=== PATIENT | female | born 1970 | race Caucasian/White ===

== ENCOUNTER 2018-07-07 20:05 | Emergency (ER) | payer OTHER ==
[~2018-07-07] VITALS: Ht 162.6 cm; Wt 97.9 kg
[2018-07-07 20:08] VITALS: Ht 162.6 cm; Wt 97.9 kg
[2018-07-07] MEDS ORDERED: KETOROLAC 15 MG INJ IM STA (22:43)
--- NOTE | 2018-07-07 22:43 | ERD ---
ER Documentation Chief Complaint Chief Complaint pt reports lump in breast 18 months, nipple having bloody drainage HPI This is a 47-year-old female with a known past medical history of a benign cystic right breast mass, diagnosed approximately 18 months ago, for which she has had a full work-up including CT scan, mammogram, ultrasound and biopsy, is presenting with continued right breast pain associated with bloody purulent discharge today. The discharge is what prompted her to come to the emergency department. The family reports occasional fever and chills over the last several months. The patient is afebrile today. She has no other complaints. She does not endorse any alleviating or exacerbating factors. The patient has had no headache or vision changes. The patient does not endorse neck or back pain. The patient denies lightheadedness or dizziness. The patient has had no chest pain or trouble breathing. The patient denies nausea or vomiting. The patient denies abdominal pain. The patient denies changes to bowel movements or urination. The patient has had no focal deficits. The patient has had no weakness or numbness or tingling to the face or extremities. ROS All systems reviewed and are negative except as per history of present illness. Allergies Allergies: Coded Allergies: No Known Allergy (Unverified , 07/07/18) PMhx/Soc Medical and Surgical Hx: pt denies Surgical Hx History of Surgery: Yes () Anesthesia Reaction: No Hx Neurological Disorder: No Hx Respiratory Disorders: No Hx Cardiac Disorders: No Hx Psychiatric Problems: No Hx Miscellaneous Medical Probl: Yes (Right breast cyst) Hx Alcohol Use: No Hx Substance Use: No Hx Tobacco Use: No FmHx Family History: No diabetes Physical Exam Vitals Vital Signs Date Temp Pulse Resp B/P (MAP) Pulse Ox O2 O2 Flow FiO2 Time Delivery Rate 07/07/18 97.9 103 20 152/72 99 20:08 (98) Physical Exam Const: No acute distress Head: Atraumatic Eyes: Normal Conjunctiva ENT: Normal External Ears, Nose and Mouth. Neck: Full range of motion. No meningismus. Resp: Clear to auscultation bilaterally Cardio: Regular rate and rhythm, no murmurs Breast: Hospital Manager present at all times. Right mobile tender rubbery breast mass superior to the areola without any active discharge, no erythema or induration to the skin. Abd: Soft, non tender, non distended. Normal bowel sounds Skin: No petechiae or rashes Back: No midline or flank tenderness Ext: No cyanosis, or edema Neur: Awake and alert Psych: Normal Mood and Affect Procedures/MDM MDM Previous medical records, if available, were reviewed. The patient symptoms are potentially concerning for mastitis. I do not see any evidence of cellulitis. I have decreased suspicion for abscess. The patient's breast mass size and structure is unchanged and chronic according to the patient. The patient understands the need to follow-up with her physicians who have been following her for this problem. I do intend to treat with antibiotics. The patient is afebrile with unremarkable vital signs. I do not suspect a syst emic infection. The patient does not require a septic work-up. TREATMENT/DISPOSITION The patient was treated with Toradol. DISCHARGE Upon reevaluation of the patient, symptoms have improved. No emergent diagnoses were identified. At this time, I feel that the patient stable for discharge. The patient was instructed to follow-up with a primary care physician in 1-3 days. The patient will be given strict precautions with which to return to the emergency department. Prescriptions: Augmentin, ibuprofen The patient's blood pressure was elevated at greater than 120/80 while in the emergency department. The patient was otherwise stable with no evidence of hypertensive urgency or emergency. The patient does not require admission for blood pressure control. I have discussed with the patient the risks of hypertension. I have instructed the patient to return to the ER for any new or worsening symptoms including chest pain, shortness of breath, headache, blurred vision, confusion, nausea, vomiting or LOC. I have advised the patient to follow up with the primary care physician for outpatient monitoring and treatment for hypertension in 1-3 days. Disclaimer: Inadvertent spelling and grammatical errors are likely due to EHR/dictation software use and do not reflect on the overall quality of patient care. Note that the electronic time recorded on this note does not necessarily reflect the actual time of the patient encounter. Departure Diagnosis: Primary Impression: Mastitis Additional Impressions: Chronic breast pain Breast mass, right Condition: Stable Patient Instructions: Breast Mass, Uncertain Cause, Mastitis Additional Instructions: Thank you for for coming to [facility] for your care today. Please ask your nurse or provider if you have questions about your care today and do not leave until all your questions have been answered. Please use any medications given as directed and follow-up with your doctor (or the doctor you were referred to) in the next 1-3 days. If you do not have a primary care doctor you may follow up at the [facility] clinic (listed below). You may also use motrin and tylenol as needed for fever and/or pain unless instructed otherwise by your provider or nurse. Indications for more urgent follow-up have been discussed, but you may return to the Emergency Department at ANY time for any worrisome or worsening symptoms. If you have abdominal pain, please know that no test or exam you received is perfect and you should follow up within 8 hours for continued pain. If you had any imaging studies today, such as an X-Ray or CT Scan, these studies will be reviewed later by a radiologist. You will be called if there are important findings that were not identified today, so make sure the contact information you provided at registration is correct. If you received any narcotic pain control medicine today, such as Vicodin, Morphine or Dilaudid, your coordination and judgment may be affected for a number of hours. Please do not drive or operate heavy machinery, and you may want someone to assist you at home. If you were given a prescription for narcotic medication, be aware that it is very addictive- use sparingly and only if necessary. PLEASE SEEK FURTHER EVALUATION AND MANAGEMENT AT YOUR DOCTORS OFFICE WITHIN THE NEXT 1-3 DAYS. IT IS YOUR RESPONSIBILITY TO MAKE AN APPOINTMENT FOR FOLOW-UP CARE. IF YOU HAVE A PRIMARY DOCTOR, PLEASE CALL THEIR OFFICE TO SCHEDULE AN APPOINTMENT FOR FOLLOW UP. IF YOU DO NOT HAVE A PRIMARY DOCTOR YOU CAN CALL OUR PHYSICIAN REFERRAL HOTLINE AT IF YOU CAN NOT AFFORD TO SEE A PHYSICIAN YOU CAN CHOSE FROM THE FOLLOWING [facility] CLINICS: [facility] [address] [facility] [address] [facility] [facility] [address] [facility] [address] [facility] [address] [facility]. [facility]. [address] JUANITA SIFUENTES MD July 07, 2018 22:43
[2018-07-07] MEDS ORDERED: AMOX1TAB10 PO (22:44)
[2018-07-07] MEDS ORDERED: IBUP-1542 PO (22:44)
[2018-07-07 23:10] VITALS: BP 118/75; PULSE 62; RESP 20
== END 2018-07-07 23:25 | disposition home or self-care (01) ==
LOC: E/R 20:05
DX: N61.0 Mastitis without abscess (principal)
CPT/HCPCS: 96372; J1885; Z7502

== ENCOUNTER 2018-08-03 08:18 | Emergency (ER) | payer OTHER ==
[~2018-08-03] VITALS: Ht 165.1 cm; Wt 96.0 kg
[~2018-08-03 08:18] MED LIST: AMOX1TAB10 PO; IBUP-1542 PO
[2018-08-03 08:23] VITALS: BP 134/68; PULSE 76; RESP 18; Ht 165.1 cm; Wt 96.0 kg
[2018-08-03] MEDS ORDERED: BACI28.34 TOP (08:48)
--- NOTE | 2018-08-03 08:49 | ERD ---
ER Documentation Chief Complaint Chief Complaint PUNCTURE WOUND ON RT LEG FROM INJURY WITH NAIL @ WORK HPI 47-year-old female presents with puncture wound from work x1 week ago. 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 she denies any significant pain to her leg but does point to very small puncture wounds. She denies any fevers or chills, or any other wounds. She states that she is not up-to-date on her tetanus shot and this is what brings her here. She is asking for updated tetanus shot. She denies any warmth, redness or any other signs of infections to the wounds. Denies any previous injury to the right stein. She reports good sensation and motor function to the right stein and foot. She denies any radiation of her pain away from her to puncture wounds. She has not taken any medication for her wounds. ROS All systems reviewed and are negative except as per history of present illness. Medications Home Meds Active Scripts Ibuprofen* (Motrin*) 600 Mg Tab, 600 MG PO Q6H PRN for PAIN AND OR ELEVATED TEMP, #30 TAB Prov:JEFF BARRY PA-C 08/03/18 Bacitracin* (Bacitracin Zinc Oint*) 28.35 Gm Oint, 1 APPLIC TOP BID, #7 TUB APPLI TO Prov:JEFF BARRY PA-C 08/03/18 Ibuprofen* (Motrin*) 600 Mg Tab, 600 MG PO Q6H PRN for PAIN AND/OR INFLAMMATION, #30 TAB Prov:JUANITA LANE MD 07/07/18 Amoxicillin/Potassium Clav (Amox-Clav 875-125 mg Tablet) 875-125 mg Tab, 1 TAB PO BID for 7 Days, #14 TAB Prov:JUANITA LANE MD 07/07/18 Allergies Allergies: Coded Allergies: No Known Allergy (Unverified , 08/03/18) PMhx/Soc History of Surgery: Yes () Anesthesia Reaction: No Hx Neurological Disorder: No Hx Respiratory Disorders: No Hx Cardiac Disorders: No Hx Psychiatric Problems: No Hx Miscellaneous Medical Probl: Yes (Right breast cyst) Hx Alcohol Use: No Hx Substance Use: No Hx Tobacco Use: No FmHx Family History: No diabetes Physical Exam Vitals Vital Signs Date Temp Pulse Resp B/P (MAP) Pulse Ox O2 O2 Flow FiO2 Time Delivery Rate 08/03/18 98.1 76 18 134/68 99 08:23 (90) Physical Exam Const: No acute distress Head: Atraumatic Eyes: Normal Conjunctiva ENT: Normal External Ears, Nose and Mouth. Neck: Full range of motion. Resp: Clear to auscultation bilaterally Cardio: Regular rate and rhythm Abd: Soft, non tender, non distended. Skin: No rashes Back: No midline tenderness Ext: 2 small 1 cm circular puncture wounds on the right anterior stein. Not warm, not erythematous, not bleeding. Neur: Awake and alert Psych: Normal Mood and Affect Results 24 hrs Current Medications Medications Dose Sig/Jonas Start Time Status Last (Trade) Ordered Route PRN Stop Time Admin Dose Reason Admin Tetanus 250 units ONCE ONCE 08/03/18 Cancel Immune IM 09:00 Globulin 08/03/18 09:01 (Hypertet S/D) Diphtheria/ 0.5 ml ONCE ONCE 08/03/18 DC 08/03/18 Tetanus/Acell IM* 09:00 09:01 Pertussis 08/03/18 09:01 (Adacel) Procedures/MDM ED COURSE: The patient was stable throughout ED course. I kept the patient informed of laboratory and diagnostic imaging results throughout the ED course. MEDICATIONS GIVEN: [None.] Patient tolerated medication well with no adverse reactions. Patient reported improvement in pain. MEDICAL DECISION MAKING: Patient is a 47-year-old female presenting with 2 puncture wounds on her right anterior stein x1 week ago. She denies any worries for infections at this time but states that she is not up-to-date on her tetanus vaccine and she is wanting an up-to-date vaccine at this time. H&P and other data no c/w emergent process. Low suspicion for anaphylaxis, SJS/TEN, erythema multiforme, sepsis, cellulitis, necrotizing fasciitis, gangrene, meningococcemia, allergic contact dermatitis, eczema, tinea infection, or other emergent conditions. Vital signs were reviewed. Patient is afebrile. Patient was not hypoxic. Patient was hemodynamically stable. PRESCRIPTION: Bacitracin DISCHARGE: At this time, patient is stable for discharge and outpatient management. I have instructed the patient to follow-up with his/her primary care physician in 1-2 days. I have discussed with the patient the possibility of needing to see a specialist for further workup and imaging studies if symptoms persist. I have instructed the patient to promptly return to the ER for any new or worsening sym ptoms including increased pain, fever, nausea, vomiting, weakness or LOC. The patient and/or family expressed understanding of and agreement with this plan. All questions were answered. Home care instructions were provided. Disclaimer: Inadvertent spelling and grammatical errors are likely due to EHR/dictation software use and do not reflect on the overall quality of patient care. Also, please note that the electronic time recorded on this note does not necessarily reflect the actual time of the patient encounter. Departure Diagnosis: Primary Impression: Puncture wound Condition: Fair Patient Instructions: Puncture Wound, General Referrals: COMMUNITY CLINICS YOU HAVE RECEIVED A MEDICAL SCREENING EXAM AND THE RESULTS INDICATE THAT YOU DO NOT HAVE A CONDITION THAT REQUIRES URGENT TREATMENT IN THE EMERGENCY DEPARTMENT. FURTHER EVALUATION AND TREATMENT OF YOUR CONDITION CAN WAIT UNTIL YOU ARE SEEN IN YOUR DOCTORS OFFICE WITHIN THE NEXT 1-2 DAYS. IT IS YOUR RESPONSIBILITY TO MAKE AN APPOINTMENT FOR FOLOW-UP CARE. IF YOU HAVE A PRIMARY DOCTOR --you should call your primary doctor and schedule an appointment IF YOU DO NOT HAVE A PRIMARY DOCTOR YOU CAN CALL OUR PHYSICIAN REFERRAL HOTLINE AT IF YOU CAN NOT AFFORD TO SEE A PHYSICIAN YOU CAN CHOSE FROM THE FOLLOWING [facility] [address] [facility]. [facility] [address] [facility]. [facility] [address] [facility] [address] [facility] [facility] [address] [facility]. [facility]. [address] [facility]. [facility] YOU HAVE RECEIVED A MEDICAL SCREENING EXAM AND THE RESULTS INDICATE THAT YOU DO NOT HAVE A CONDITION THAT REQUIRES URGENT TREATMENT IN THE EMERGENCY DEPARTMENT. FURTHER EVALUATION AND TREATMENT OF YOUR CONDITION CAN WAIT UNTIL YOU ARE SEEN IN YOUR DOCTORS OFFICE WITHIN THE NEXT 1-2 DAYS. IT IS YOUR RESPONSIBILITY TO MAKE AN APPOINTMENT FOR FOLOW-UP CARE. IF YOU HAVE A PRIMARY DOCTOR --you should call your primary doctor and schedule and appointment IF YOU DO NOT HAVE A PRIMARY DOCTOR YOU CAN CALL OUR PHYSICIAN REFERRAL HOTLINE AT . IF YOU CAN NOT AFFORD TO SEE A PHYSICIAN YOU CAN CHOSE FROM THE FOLLOWING [facility] INSTITUTIONS: [facility] [address] [place] [address] [facility] [address] [place] [address] [facility] [address] [place] [address] Additional Instructions: Call your primary care doctor TOMORROW for an appointment during the next 2-3 days.See the doctor sooner or return here if your condition worsens before your appointment time. JEFF BARRY PA-C Aug 03, 2018 08:49
[2018-08-03] MEDS ORDERED: TETANUS IMMUNE GLOB 250 UNIT SYG IM ONE (09:00)
[2018-08-03] MEDS ORDERED: DIPHTH/TET/ACEL PERTUSS (ADULT) 0.5 ML VIAL IM* ONE (09:00)
[2018-08-03] MEDS ORDERED: IBUP-1542 PO (09:11)
== END 2018-08-03 09:07 | disposition home or self-care (01) ==
LOC: FTE 08:18
DX: S81.831A Puncture wound without foreign body, right lower leg, initial encounter (principal); W45.0XXA Nail entering through skin, initial encounter; Y92.89 Other specified places as the place of occurrence of the external cause; Z23 Encounter for immunization
CPT/HCPCS: 90471; 90715; Z7502; 90389